=== PATIENT | female | born 1955 | race American Indian/Alaskan Native ===

== ENCOUNTER 2021-06-16 23:36 | Emergency (ER) | payer OTHER ==
[~2021-06-16 23:36] MED LIST: CALCIUM CHLORIDE 1,000 MG/10 ML SYRINGE IV ONE; EPINEPHrine 1 MG/10 ML SYRINGE ONE
--- NOTE | 2021-06-16 23:47 | Emergency Department Report ---
HPI - General Time Seen by Provider: 06/16/21 23:44 - HPI HPI: This is a 66-year-old -Citizen Of [place] female presents to the emergency department via EMS from home in cardiac arrest. Per EMS, family last spoke to the patient around 10 PM. Around 10:40 PM they found her unresponsive and called for EMS. EMS arrived at 1052 and found the patient to be pulseless, and they initiated ACLS protocol. The patient was intubated with a 6.0 endotracheal tube and began receiving bag valve ventilation through the ET tube. EMS began chest compressions and the patient received ACLS medications including 3 rounds of epinephrine and 1 dose of sodium bicarb. The patient had an Accu-Chek of about 300. EMS never achieved ROSC and says that she was in PEA during their entire prearrival course. The patient has a current history of bilateral lower extremity fractures. She was brought into room #1 where the patient continues to be pulseless and unresponsive and ACLS protocol continued. ED Past Medical Hx - Past Medical History Additional medical history: Vaginal delivery x 2 - Surgical History Additional Surgical History: - Social History Smoking Status: Never Smoker Substance Use Type: None - Medications Home Medications: Home Medications Medication Instructions Recorded Confirmed Last Taken Type Ibuprofen [Motrin 800 MG tab] 800 mg PO Q8H PRN #30 tablet 11/04/14 Unknown Rx traMADoL [Ultram] 50 mg PO Q6HR PRN #10 tablet 11/04/14 Unknown Rx ED Review of Systems ROS: Stated complaint: CARDIAC ARREST Other details as noted in HPI Comment: Unobtainable due to pts medical conditions Physical Exam - Physical Exam Physical Exam: GENERAL: Patient is ill-appearing and unresponsive. HENT: Normocephalic. Atraumatic. EYES: Pupils are fixed and dilated. NECK: Supple. Trachea appears midline. CHEST/LUNGS: There are no spontaneous respirations. HEART/CARDIOVASCULAR: There are no spontaneous heart sounds. ABDOMEN: Abdomen is soft. There is no abdominal distention. SKIN: Skin is cool but dry. NEURO: Unresponsive. Does not withdraw to painful stimuli. Does not follow any commands. MUSCULOSKELETAL: There is no obvious deformity. There is no evidence of acute injury. No palpable femoral or radial pulses. ED Medical Decision Making - Medical Decision Making This patient was found unresponsive by her family at about 10:40 PM this evening. EMS arrived about 10 minutes later and found the patient to be pulseless, in PEA. Patient was intubated with a 6.0 endotracheal tube and began receiving bag valve ventilation. They continued ACLS protocol with chest compressions and ACLS medications including 3 rounds of epinephrine, 1 dose of s odium bicarbonate. The patient had an Accu-Chek of about 300. EMS arrived and the patient was placed in room #1. EMS had been performing ACLS protocol for about 40 minutes prior to arrival. We continued chest compressions and bag valve ventilation through the endotracheal tube. The patient was in asystole once switched to our zole monitor. The patient received another 3 rounds of epinephrine, 1 dose of sodium bicarbonate, 1 dose of calcium. With each pulse and rhythm check, the patient was found to be in asystole. By this time the patient had been without ROSC for about 50 minutes. The patient had fixed and dilated pupils, there were no spontaneous heart or breath sounds. Time of called at 11:43 PM. Patient's family was notified and given an opportunity to see the patient. Critical care attestation.: If time is entered above; I have spent that time in minutes in the direct care of this critically ill patient, excluding procedure time. ED Disposition Clinical Impression: Cardiac arrest Acute respiratory failure Qualifiers: Respiratory failure complication: unspecified whether with hypoxia or hypercapnia Qualified Code(s): J96.00 - Acute respiratory failure, unspecified whether with hypoxia or hypercapnia Disposition: 20 Is pt being admited?: No Time of Disposition: 00:57
== END 2021-06-17 04:30 ==
LOC: ED 23:36
DX: I46.9 Cardiac arrest, cause unspecified (principal); J96.00 Acute respiratory failure, unspecified whether with hypoxia or hypercapnia; Z98.890 Other specified postprocedural states
CPT/HCPCS: 92950; 99285; J0171; J3490